=== PATIENT | male | born 1935 | race Caucasian/White ===

== ENCOUNTER 2018-03-22 07:06 | Day surgery (SDC) | payer MEDICARE, OTHER ==
[~2018-03-22] VITALS: Ht 177.8 cm; Wt 103.0 kg
[~2018-03-22 07:06] MED LIST: ASPI81CH PO; CENTRUM SILVER1 EAC2 PO; Calcium Citrat250 MG PO; FINA5 PO; FISH OIL 1,2001 EACH PO; Glucosamine Ch1 EAC4 PO; TAMS.4ER PO; Vitamin D2000 UNIT PO
== END 2018-03-22 09:48 | disposition home or self-care (01) ==
LOC: ORSCSDS 07:06
PROVIDERS: Internal Medicine Gastroenterology
PROC: 0DBL8ZX Excision of Transverse Colon, Via Natural or Artificial Opening Endoscopic, Diagnostic (ICD-10-PCS; principal; 2018-03-22 08:30)
PROC: 0DBK8ZX Excision of Ascending Colon, Via Natural or Artificial Opening Endoscopic, Diagnostic (ICD-10-PCS; principal; 2018-03-22 08:30)
PROC: 0DBH8ZX Excision of Cecum, Via Natural or Artificial Opening Endoscopic, Diagnostic (ICD-10-PCS; principal; 2018-03-22 08:30)
DX: Z86.010 Personal history of colon polyps (principal); K63.5 Polyp of colon; D12.2 Benign neoplasm of ascending colon; D12.3 Benign neoplasm of transverse colon; K57.30 Diverticulosis of large intestine without perforation or abscess without bleeding; K64.8 Other hemorrhoids; Z79.899 Other long term (current) drug therapy
CPT/HCPCS: 88305; J0330; J1980; J2405; J7120

== ENCOUNTER 2021-04-25 10:57 | Day surgery (SDC) | payer MEDICARE, OTHER ==
[~2021-04-25] VITALS: Ht 177.8 cm; Wt 105.0 kg
== END 2021-04-25 12:53 | disposition home or self-care (01) ==
LOC: ORSCSDS 10:57
PROVIDERS: Internal Medicine Gastroenterology
PROC: 0DBK8ZX Excision of Ascending Colon, Via Natural or Artificial Opening Endoscopic, Diagnostic (ICD-10-PCS; principal; 2021-04-25 12:15)
DX: Z12.11 Encounter for screening for malignant neoplasm of colon (principal); Z86.010 Personal history of colon polyps; D12.2 Benign neoplasm of ascending colon; K64.8 Other hemorrhoids; K57.30 Diverticulosis of large intestine without perforation or abscess without bleeding; E66.9 Obesity, unspecified; Z68.36 Body mass index [BMI] 36.0-36.9, adult; Z79.899 Other long term (current) drug therapy
CPT/HCPCS: 88305; J2704; J7120

== ENCOUNTER → 2023-08-17 | Outpatient (CLI) | payer MEDICARE, OTHER ==
[2023-08-17 20:40] LABS: Campylobacter Sp Detected (NOT DETECT)
[2023-08-17 20:41] LABS: Adenovirus F 40/41 Not Detected (NOT DETECT); Astrovirus Not Detected (NOT DETECT); Cryptosporidium Not Detected (NOT DETECT); Cyclospora Cayetanensis Not Detected (NOT DETECT); E. Coli O157 Not Detected (NOT DETECT); Entamoeba Histolytica Not Detected (NOT DETECT); Enteroaggregative E. coli-EAEC Not Detected (NOT DETECT); Enteropathogenic E. coli-EPEC Not Detected (NOT DETECT); Enterotoxigenic E. coli-ETEC Not Detected (NOT DETECT); Giardia Lamblia Not Detected (NOT DETECT); Norovirus GI/GII Not Detected (NOT DETECT); Plesiomonas Shigelloides Not Detected (NOT DETECT); Rotavirus A Not Detected (NOT DETECT); Salmonella Sp Not Detected (NOT DETECT); Sapovirus Not Detected (NOT DETECT); Shiga Toxin-prod E. coli-STEC Not Detected (NOT DETECT); Shigella/Enteroin E. coli-EIEC Not Detected (NOT DETECT); Vibrio Cholerae Not Detected (NOT DETECT); Vibrio Sp Not Detected (NOT DETECT); Yersinia Enterocolitica Not Detected (NOT DETECT)
[2023-08-22 03:55] LABS: PANCREATIC ELASTASE,FECAL 31 ug/g (>=100)
[2023-08-22 04:13] LABS: CALPROTECTIN,FECAL 102 ug/g (<=49)
== END ==
LOC: LAB 06:00 → LAB SHORT 06:00
PROVIDERS: Family Medicine
DX: A06.1 Chronic intestinal amebiasis (principal)
CPT/HCPCS: 82653; 83993; 87507

== ENCOUNTER → 2023-09-07 | Outpatient (CLI) | payer MEDICARE, OTHER ==
[2023-09-07 18:19] LABS: Campylobacter Sp Not Detected (NOT DETECT)
[2023-09-07 18:20] LABS: Adenovirus F 40/41 Not Detected (NOT DETECT); Astrovirus Not Detected (NOT DETECT); Cryptosporidium Not Detected (NOT DETECT); Cyclospora Cayetanensis Not Detected (NOT DETECT); E. Coli O157 Not Detected (NOT DETECT); Entamoeba Histolytica Not Detected (NOT DETECT); Enteroaggregative E. coli-EAEC Not Detected (NOT DETECT); Enteropathogenic E. coli-EPEC Not Detected (NOT DETECT); Enterotoxigenic E. coli-ETEC Not Detected (NOT DETECT); Giardia Lamblia Not Detected (NOT DETECT); Norovirus GI/GII Not Detected (NOT DETECT); Plesiomonas Shigelloides Not Detected (NOT DETECT); Rotavirus A Not Detected (NOT DETECT); Salmonella Sp Not Detected (NOT DETECT); Sapovirus Not Detected (NOT DETECT); Shiga Toxin-prod E. coli-STEC Not Detected (NOT DETECT); Shigella/Enteroin E. coli-EIEC Not Detected (NOT DETECT); Vibrio Cholerae Not Detected (NOT DETECT); Vibrio Sp Not Detected (NOT DETECT); Yersinia Enterocolitica Not Detected (NOT DETECT)
[2023-09-10 18:22] LABS: PANCREATIC ELASTASE,FECAL 215 ug/g (>=100)
[2023-09-10 18:27] LABS: CALPROTECTIN,FECAL 304 ug/g (<=49)
== END | disposition home or self-care (01) ==
LOC: LAB 06:00 → LAB SHORT 06:00
PROVIDERS: Family Medicine
DX: A06.1 Chronic intestinal amebiasis (principal)
CPT/HCPCS: 82653; 83993; 87507

== ENCOUNTER 2023-10-03 06:08 | Day surgery (SDC) | payer MEDICARE, OTHER ==
[~2023-10-03] VITALS: Ht 177.8 cm; Wt 98.7 kg
[2023-10-03] VITALS (15 sets, daily range): BP systolic 97–145; BP diastolic 35–83
[~2023-10-03 06:08] MED LIST changes: +ASCORBIC ACID500 MG PO; +CALCIUM CIT 311 EAC7 PO; -Calcium Citrat250 MG PO; +MELA3 PO; +THERA-D2000 UNIT PO; -Vitamin D2000 UNIT PO
--- NOTE | 2023-10-03 17:02 | NUR ---
SHIFT SUMMARY S/P L GIO, BULKY DRESSING DRY/INTACT, POLAR VANNESSA ON. A&OX4, VSS/RA, LESLIE PO, VOIDING, AMB BRP/HALLWAY/UP TO CHAIR W/FWW-GB-SBA, PAIN MANAGED, IV SL/ABX PER EMAR, PHYSICAL THERAPY EVAL'D. FAMILY BEDSIDE. WILL REPORT TO ONCOMING ANDRA LOONEY.
[2023-10-04 03:07] VITALS: BP 131/70
[2023-10-04 04:18] LABS: BASOPHILS ABSOLUTE AUTO 0.01 K/mm3 (0.00-0.23); BASOPHILS PERCENT AUTO 0 % (0-2); EOSINOPHILS PERCENT AUTO 0 % (0-6); Hematocrit 34.6 % (37.0-53.0); IMMATURE GRAN ABSOLUTE AUTO 0.03 K/mm3 (0.00-0.10); IMMATURE GRAN PERCENT AUTO 0 % (0-1); LYMPHOCYTES ABSOLUTE AUTO 1.43 K/mm3 (0.84-5.20); LYMPHOCYTES PERCENT AUTO 14 % (21-46); MONOCYTES ABSOLUTE AUTO 0.91 K/mm3 (0.16-1.47); MONOCYTES PERCENT AUTO 9 % (4-13); Mean Corpuscular HGB 32.8 pg (26.0-34.0); Mean Corpuscular HGB Conc 34.7 g/dL (31.5-36.5); Mean Corpuscular Volume 95 fL (80-100); Mean Platelet Volume 10.4 fL (9.1-12.4); NEUTROPHILS PERCENT AUTO 76 % (41-73); Platelet Count 155 K/mm3 (150-400); RDW Coefficient Variation 12.3 % (11.7-14.2); RDW Standard Deviation 43.3 fL (35.1-46.3); Red Blood Cell Count 3.66 M/mm3 (4.30-5.90); White Blood Cell Count 9.98 K/mm3 (4.00-11.30)
[2023-10-04 04:57] LABS: Bun/Creatinine Ratio 19.8 (12.0-20.0); Calcium, Blood 8.9 mg/dL (8.5-10.1); Creatinine, Blood 1.16 mg/dL (0.60-1.20); Magnesium, Blood 1.9 mg/dL (1.6-2.4); Potassium, Blood 4.4 mmol/L (3.5-5.5)
--- NOTE | 2023-10-04 06:49 | NUR ---
SHIFT SUMMARY POD 1 L GIO. VSS. A&O x4. TOLERATING ORALS. AMBULATES USING FWW c GB & SBA. PASSED PT/OT YESTERDAY. DRESSING C/D/I. PT REPORTS PASSING FLATUS, NO BM. PT RETAINED URINE, REQUIRING STRAIGHT CATH x2 OVERNIGHT. PT REPORTED INCREASED PAIN TO BLADDER, EACH BLADDER SCAN BEFORE STRAIGHT CATH RESULTED IN >500mL. PT TOLERATED WELL, PT REPORTED RELIEF. PT REPORTS PAIN TOLERABLE, MEDICATED PER EMAR. CALL LIGHT WITHIN REACH, BED IN LOWEST POSITION, WILL REPORT TO DAY RN.
[2023-10-04 07:05] VITALS: BP 121/69
[2023-10-04] MEDS ORDERED: SULTRIDS PO (09:32)
[2023-10-04] MEDS ORDERED: Aspir 8181 MG PO (09:32)
[2023-10-04] MEDS ORDERED: OXYC5 PO (09:32)
--- NOTE | 2023-10-04 12:38 | NUR ---
DISCHARGE PT A&OX4, VSS/RA, LESLIE PO, AMB SBA FWW/GB, PAIN MANAGED, IV DC'D, GARSIA PLACED FOR URINARY RETENTION -PLAN FOR PATIENT TO FU WITH PCP SUNDAY/SENT HOME WITH APPROPRIATE SUPPLIES. DC INS PROVIDED. PT//DAUGHTER REP UNDERSTANDING INSTRUCTIONS. LEFT FLOOR VIA WC WITH MACHINE DRILLER TO GO HOME WITH FAMILY WITH ALL PERSONAL POSSESSIONS, INCLUDING DC INS, AQUACEL DRESSINGS, GARSIA SUPPLIES.
== END 2023-10-04 12:44 | disposition home or self-care (01) ==
LOC: SURS 06:08 → ORSCMMR 06:08 → ORD 07:30 → SURS 10:33 → ORSCMMR 10-04 12:44
PROVIDERS: Orthopaedic Surgery
PROC: 0SRB0JA Replacement of Left Hip Joint with Synthetic Substitute, Uncemented, Open Approach (ICD-10-PCS; principal; 2023-10-03 07:30)
DX: M16.0 Bilateral primary osteoarthritis of hip (principal); E78.00 Pure hypercholesterolemia, unspecified; Z79.899 Other long term (current) drug therapy
CPT/HCPCS: 36415; 72170; 80048; 83735; 85025; 97110; 97116; 97161; 97165; 97530; 97535; A9270; C1713; C1776; J0171; J0690; J0735; J1100; J1885; J2250; J2405; J2704; J2795; J3010; J7120